=== PATIENT | male | born 1945 | race Caucasian/White ===

== ENCOUNTER 2017-03-23 10:21 | Emergency (ER) | payer OTHER ==
--- NOTE | 2017-03-23 12:05 | XRAY Preliminary Report ---
Exam: XR Humerus RT IMPRESSION: 1. No acute osseous abnormalities. [facility] SITE ID: [id number]
--- NOTE | 2017-03-23 12:06 | XRAY Preliminary Report ---
Exam: XR Shoulder 3 View RT IMPRESSION: 1. No acute osseous abnormalities. 2. Degenerative changes of the right shoulder. [facility] SITE ID: [id number]
--- NOTE | 2017-03-23 12:07 | XRAY Report ---
EXAM: RIGHT HUMERUS RADIOGRAPHY EXAM DATE: 03/23/2017 11:47 AM. CLINICAL HISTORY: Pain. COMPARISON: None. TECHNIQUE: 2 views. FINDINGS: Bones: Normal. No fractures or bone lesions. Joints: Normal alignment. Mild degenerative changes of the right shoulder. Soft Tissues: Normal. No soft tissue swelling. IMPRESSION: 1. No acute osseous abnormalities. [facility] Referring Provider Line: [phone] SITE ID: [id number]
--- NOTE | 2017-03-23 12:08 | XRAY Report ---
EXAM: RIGHT SHOULDER RADIOGRAPHY EXAM DATE: 03/23/2017 11:47 AM. CLINICAL HISTORY: Pain. COMPARISON: None. TECHNIQUE: 3 views. FINDINGS: Bones: No acute fracture or bony lesion. Type I acromion. Degenerative spurring. Joints: Degenerative changes of the right acromioclavicular and right glenohumeral joints. No disloca tion. Soft tissues: Right lung and right ribs are unremarkable. IMPRESSION: 1. No acute osseous abnormalities. 2. Degenerative changes of the right shoulder. [facility] Referring Provider Line: [phone] SITE ID: [id number]
--- NOTE | 2017-03-23 12:50 | ED Physician Documentation ---
History of Present Illness - Stated complaint Stated Complaint: R ARM PX-GLF - Chief complaint Chief Complaint: Ext Problem - Additonal information Additional information: hx from pt 71 male hx bicep tear repaired by [facility] Martel [place] [facility] [place] yesterday, caught R arm in lattice, then fell onto R arm pain ot prox humerus region and bicep weakness same as prior tear no head neck injury Review of Systems Musculoskeletal: reports: Extremity pain. denies: Neck pain Neurologic: denies: Focal weakness, Numbness, Headache, Head injury PD PAST MEDICAL HISTORY - Past Medical History Cardiovascular: Hypertension, High cholesterol Endocrine/Autoimmune: Type 2 diabetes - Past Surgical History Past Surgical History: Yes Ortho: Other - Present Medications Home Medications: Ambulatory Orders Medication Instructions Recorded Confirmed Metformin HCl [Metformin HCl ER] 1,000 mg PO BID 02/09/14 02/09/14 Neomycin/Polymyx/Hc Otic Drops 4 drops OT QID #1 bottle 06/15/16 03/23/17 [Cortisporin Ear Susp] - Allergies Allergies/Adverse Reactions: Allergies Allergy/AdvReac Type Severity Reaction Status Date / Time No Known Drug Allergies Allergy Verified 02/09/14 09:27 - Social History Does the pt smoke?: No Smoking Status: Never smoker Does the pt drink ETOH?: Yes Does the pt have substance abuse?: No - Immunizations Immunizations are current?: Yes PD ED PE NORMAL - Vitals Vital signs reviewed: Yes - General General: Alert and oriented X 3 - HEENT HEENT: Atraumatic - Neck Neck: No bony TTP - Extremities Extremities: Other (clavicle NT, shoulder NT and able to range, TTP upper arm, bicep soft and not able to be flexed like the L, no TTP mid to upper bicep, no clear defect flt, + radial pulse, sensation intact, computing machine operator/finger ABD/thumb up/OK , wrist ext all 5/5 ) Results - Vitals Vitals: Vital Signs - 24 hr 03/23/17 10:35 Temperature 36.5 C Heart Rate 71 Respiratory 16 Rate Blood Pressure 146/77 H O2 Saturation 97 Oxygen O2 Source Room air Departure - Departure Disposition: 01 Home, Self Care Clinical Impression: Biceps muscle tear Qualifiers: Encounter type: initial encounter Laterality: right Qualified Code(s): S46.211A - Strain of muscle, fascia and tendon of other parts of biceps, right arm, initial encounter Condition: Good Follow-Up: NEWLON,KENDALL A [Primary Care Provider] - Comments: The xrays are fine The exam indicates you have torn your bicep again [facility] Wear the sling as needed but be sure to do some range of motion with your shoulder every day to prevent a "frozen" joint. Ice and tylenol as needed for the pain And please get your blood pressure rechecked - it was high today
[2017-03-23 13:00] VITALS: BP 139/89
== END 2017-03-23 12:59 | disposition home or self-care (01) ==
LOC: ED 10:21
DX: S46.211A Strain of muscle, fascia and tendon of other parts of biceps, right arm, initial encounter (principal); W01.0XXA Fall on same level from slipping, tripping and stumbling without subsequent striking against object, initial encounter; I10 Essential (primary) hypertension; E11.9 Type 2 diabetes mellitus without complications
CPT/HCPCS: 99282; 99283

== ENCOUNTER 2017-11-05 10:25 | Emergency (ER) | payer OTHER ==
[2017-11-05 10:42] VITALS: BP 134/69
--- NOTE | 2017-11-05 12:27 | ED Physician Documentation ---
History of Present Illness - Stated complaint Stated Complaint: R KNEE SWOLLEN - Chief complaint Chief Complaint: Ext Problem - Additonal information Additional information: hx from pt hx meniscal injury no specific recent event just awoke and his knee was painful and swollen no redness or fever no CP or SOA Review of Systems Cardiac: denies: Chest pain / pressure Respiratory: denies: Dyspnea Musculoskeletal: reports: Joint pain, Joint swelling Immunocompromised: denies: Immunocompromised PD PAST MEDICAL HISTORY - Past Medical History Past Medical History: Yes Cardiovascular: Hypertension Endocrine/Autoimmune: Type 2 diabetes - Past Surgical History Past Surgical History: Yes Ortho: Other - Present Medications Home Medications: Ambulatory Orders Medication Instructions Recorded Confirmed Metformin HCl [Metformin HCl ER] 1,000 mg PO BID 02/09/14 02/09/14 Aspirin 81 mg PO DAILY 11/05/17 11/05/17 Indomethacin [Indocin] 25 mg PO TIDWM PRN #12 capsule 11/05/17 Insulin Glargine [Lantus Solostar] 18 unit SQ BID 11/05/17 11/05/17 - Allergies Allergies/Adverse Reactions: Allergies Allergy/AdvReac Type Severity Reaction Status Date / Time No Known Drug Allergies Allergy Verified 11/05/17 10:42 - Social History Does the pt smoke?: No Smoking Status: Never smoker Does the pt drink ETOH?: Yes ETOH Use: Beer Does the pt have substance abuse?: No - Immunizations Immunizations are current?: Yes - POLST Patient has POLST: No PD ED PE NORMAL - Vitals Vital signs reviewed: Yes - Neck Neck: Supple, no meningeal sign - Cardiac Cardiac: RRR - Respiratory Respiratory: No respiratory distress, Clear bilaterally - Extremities Extremities: Other (R knee + effusion, no quad or patellar tendon TTP, no patelalr TTP, no focal jt line TTP, no MCL ACL LCL laxity, some pain nio pop with meiscla testing, painf to flex past approx 75 degress, MSV intact, no erythema or warmth) Results - Vitals Vitals: Vital Signs - 24 hr 11/05/17 10:41 Temperature 36.3 C L Heart Rate 65 Respiratory 18 Rate Blood Pressure 134/69 H O2 Saturation 97 Oxygen O2 Source Room air - Rads (name of study) knee Radiology: See rad report (effusion) doppler Radiology: See rad report (neg) Departure - Departure Disposition: 01 Home, Self Care Clinical Impression: Knee effusion, right Condition: Good Instructions: ED Effusion Knee Prescriptions: Indomethacin [Indocin] 25 mg PO TIDWM PRN #12 capsule PRN Reason: Pain Comments: The xray does not show any bony abnormalities or arthritis The ultrasound does not show a blood clot The knee is not red or hot so I doubt a joint infection or gout It is possible you have re-aggravated the meniscal injury For now I recommend an MYRIAM wrap and ice to decrease the swelling, indocin for the pain and swelling, crutches to decrease the weight bearing stress. If the swelling persists, please follow up with orthopedics for further evaluation and consideration of a MRI to evaluate the mensicus
--- NOTE | 2017-11-05 13:02 | XRAY Report ---
EXAM: RIGHT KNEE RADIOGRAPHY EXAM DATE: 11/05/2017 12:30 PM. CLINICAL HISTORY: Knee swelling and pain. COMPARISON: None. TECHNIQUE: 4 views. FINDINGS: Bones: No acute fracture. Joints: Mild degenerative spurring. No subluxation. Small to moderate suprapatellar effusion. Soft Tissues: Anterior soft tissue swelling. Vascular calcifications. IMPRESSION: Joint effusion and soft tissue swelling. No acute osseous abnormality. [facility] Referring Provider Line: [phone] SITE ID: [id number]
--- NOTE | 2017-11-05 17:34 | Ultrasound Report ---
RIGHT LEG VENOUS DUPLEX: 11/05/2017 CLINICAL INDICATION: Knee swelling. TECHNIQUE: Real-time sonographic vascular imaging was performed by the customer account manager through the right lower extremity utilizing both color flow and Doppler spectral analysis. Multiple sales representative facility services static images were saved for review. FINDINGS: A right lower extremity venous sonogram is performed revealing the common femoral, superficial femoral, profunda femoris, and popliteal veins to be adequately visualized without intraluminal defects. There is normal venous compression, augmentation, phasicity, and spontaneity of venous flow. In the calf, the visualized more cephalad portions of posterior tibial and peroneal veins are grossly compressible, without filling defects. IMPRESSION: NO EVIDENCE OF DEEP VENOUS THROMBOSIS. TD: 11/05/2017 17:33
== END 2017-11-05 14:08 | disposition home or self-care (01) ==
LOC: ED 10:25
DX: M25.641 Stiffness of right hand, not elsewhere classified (principal); I10 Essential (primary) hypertension; E11.9 Type 2 diabetes mellitus without complications; Z79.4 Long term (current) use of insulin; Z79.82 Long term (current) use of aspirin
CPT/HCPCS: 99283

== ENCOUNTER 2019-03-21 18:24 | Emergency (ER) | payer OTHER ==
[2019-03-21 18:33] VITALS: BP 164/111
--- NOTE | 2019-03-21 18:47 | ED Physician Documentation ---
PD HPI UPPER EXT INJURY - Stated complaint Stated Complaint: R SHOULDER PX - Chief complaint Chief Complaint: Ext Problem - History obtained from History obtained from: Patient - History of Present Illness Location: Right (73-year-old gentleman with history of extensive rotator cuff issues on both sides took a fall or bowling alley 4 days ago and landed directly on his right shoulder with more significant pain that he usually has, he was has some pain in that shoulder. He declines pain medications.) Review of Systems Constitutional: reports: Reviewed and negative Throat: reports: Reviewed and negative Cardiac: reports: Reviewed and negative Respiratory: reports: Reviewed and negative PD PAST MEDICAL HISTORY - Past Medical History Cardiovascular: Hypertension Endocrine/Autoimmune: Type 2 diabetes - Past Surgical History Past Surgical History: Yes Ortho: Other - Present Medications Home Medications: Ambulatory Orders Medication Instructions Recorded Confirmed Metformin HCl [Metformin HCl ER] 1,000 mg PO BID 02/09/14 02/09/14 Aspirin 81 mg PO DAILY 11/05/17 11/05/17 Indomethacin [Indocin] 25 mg PO TIDWM PRN #12 capsule 11/05/17 Insulin Glargine [Lantus Solostar] 18 unit SQ BID 11/05/17 11/05/17 - Allergies Allergies/Adverse Reactions: Allergies Allergy/AdvReac Type Severity Reaction Status Date / Time No Known Drug Allergies Allergy Verified 03/21/19 18:33 - Social History Does the pt smoke?: No Smoking Status: Never smoker Does the pt drink ETOH?: Yes Does the pt have substance abuse?: No - Immunizations Immunizations are current?: Yes - POLST Patient has POLST: No PD ED PE NORMAL - Vitals Vital signs reviewed: Yes - General General: Alert and oriented X 3, No acute distress - HEENT HEENT: PERRL, EOMI - Neck Neck: Supple, no meningeal sign, No bony TTP - Extremities Extremities: Other (Mild tenderness of both the acromioclavicular and glenohumeral joints. No tenderness of the humerus or the rest of the right arm. He has severe pain and is unable to abduct at all, passively I am able to get him up to about 30 degrees. He does pretty well with resisting external rotation, but has a lot of pain resisting internal rotation.) - Neuro Neuro: Alert and oriented X 3, Normal speech Results - Vitals Vitals: Vital Signs - 24 hr 03/21/19 18:31 Temperature 36.8 C Heart Rate 89 Respiratory 20 Rate Blood Pressure 164/111 H O2 Saturation 96 Oxygen O2 Source Room air - Rads (name of study) 3v R shoulder Radiology: EMP read contemporaneously (DEMARIOD no frx) Departure - Departure Disposition: 01 Home, Self Care Clinical Impression: Right rotator cuff tear Qualifiers: Rotator cuff tear extent: unspecified tear extent Rotator cuff tear trauma status: traumatic Encounter type: initial encounter Qualified Code(s): S46.011A - Strain of muscle(s) and tendon(s) of the rotator cuff of right shoulder, initial encounter Condition: Good Record reviewed to determine appropriate education?: Yes Instructions: ED Torn Rotator Cuff Comments: You can wear the sling as needed but not for more than a couple of days, discuss this with your orthopedic surgeon, call them tomorrow for an appointment. Do the exercises as shown to maintain range of motion in your shoulder. Your blood pressure was elevated today on check into the emergency department. This does not mean that you have hypertension, it is a common phenomenon to come to the emergency department and have elevated blood pressure. I recommend that you see your primary care physician within the week to have it rechecked when you are feeling better.
--- NOTE | 2019-03-21 19:48 | XRAY Report ---
Reason: R shoulder inj Procedure Date: 03/21/2019 Accession Number: [id number] / [id number] Procedure: XR - Shoulder 3 View RT CPT Code: FULL RESULT: EXAM: RIGHT SHOULDER RADIOGRAPHY EXAM DATE: 03/21/2019 07:31 PM. CLINICAL HISTORY: R shoulder inj. COMPARISON: SHOULDER 3 VIEW RT 03/23/2017 11:22 AM. TECHNIQUE: 3 views. FINDINGS: Bones: Normal. No fracture or bone lesion. Joints: Mild degenerative changes of the glenohumeral joint. Soft tissues: The visualized hemithorax is unremarkable. No soft tissue swelling. IMPRESSION: 1. No acute osseous abnormalities. 2. Mild degenerative changes of the shoulder joint. [facility]
[2019-03-21] MEDS ORDERED: HYDROcod/ACET 5/325 Prepack 4 PO STA (19:58)
== END 2019-03-21 20:14 | disposition home or self-care (01) ==
LOC: ED 18:24
DX: S46.011A Strain of muscle(s) and tendon(s) of the rotator cuff of right shoulder, initial encounter (principal); W01.0XXA Fall on same level from slipping, tripping and stumbling without subsequent striking against object, initial encounter; Y92.39 Other specified sports and athletic area as the place of occurrence of the external cause; M19.011 Primary osteoarthritis, right shoulder; I10 Essential (primary) hypertension; E11.9 Type 2 diabetes mellitus without complications; Z79.4 Long term (current) use of insulin; Z79.82 Long term (current) use of aspirin
CPT/HCPCS: 99283